=== PATIENT | female | born 1975 | race Caucasian/White ===

== ENCOUNTER → 2019-01-14 | Outpatient (CLI) | payer MEDICARE, MEDICAID ==
--- NOTE | 2019-01-14 15:53 | Diagnostic Imaging Report ---
INDICATION: Right leg pain. TIME OF EXAM: 03:36 p.m. Frontal and lateral views of the right tibia and fibula were obtained. Alignment at the knee and ankle appears to be normal. Tibia and fibula appear intact. No fracture is seen. No stress reaction or stress fracture is seen. IMPRESSION: No acute abnormalities detected. Dictated by: Dictated on workstation # [id number]
== END ==
LOC: RAD FS 15:21
PROVIDERS: ATTEND Family Medicine
DX: M79.604 Pain in right leg (principal)
CPT/HCPCS: 73590

== ENCOUNTER → 2019-02-05 | Outpatient (CLI) | payer MEDICARE, MEDICAID ==
--- NOTE | 2019-02-05 16:42 | Diagnostic Imaging Report ---
PROCEDURE: MRI right lower extremity without contrast. TECHNIQUE: Multiplanar, multisequence non contrast-enhanced MRI of the right lower extremity was accomplished. INDICATION: Pain below the right knee. COMPARISON: Radiographs from 01/14/2019. FINDINGS: No acute fracture or dislocation is seen in the imaged right tibia/fibula. No aggressive osseous lesions are seen. There is moderate edema in the soft tissues along the anteromedial aspect of the mid to distal right tibia. No signal changes in the bone marrow or cortex are seen. There is mild atrophy and increased fluid-sensitive signal at the tibialis anterior muscle, particularly proximally. The remaining musculature in the lower leg demonstrates no focal edema or atrophy. No soft tissue fluid collections are seen. Mild diffuse subcutaneous edema is seen. IMPRESSION: 1. Nonspecific mild edema and atrophy in the right anterior tibialis muscle, may be due to denervation changes. 2. Edema adjacent to the mid to distal tibia can be seen with low-grade medial tibial stress syndrome. No osseous signal changes are seen. Dictated by: Dictated on workstation # [id number]
== END ==
LOC: RAD 15:20
PROVIDERS: ATTEND Family Medicine
DX: R60.0 Localized edema (principal)

== ENCOUNTER → 2020-04-05 | Outpatient (CLI) | payer MEDICARE, MEDICAID ==
--- NOTE | 2020-04-05 11:07 | Diagnostic Imaging Report ---
PROCEDURE: CT head without contrast. TECHNIQUE: Multiple contiguous axial images were obtained through the brain without the use of intravenous contrast. Auto Exposure Controls were utilized during the CT exam to meet ALARA standards for radiation dose reduction. INDICATION: Dizziness. Patient haD shunt placement 13 years ago. No prior studies are available for comparison. Right sided [employer] TECH[employer] shunt courses through the right frontal horn. There is fairly significant ventricular dilatation, suggestive of hydrocephalus. There are no prior studies for comparison. No sulcal effacement is seen. There is no midline shift. No acute intra-axial or extra-axial hemorrhage is detected. Cisterns are patent. Visualized paranasal sinuses are clear. IMPRESSION: Right [employer] TECH[employer]ICIAN shunt. There is fairly significant ventricular dilatation, suggestive of hydrocephalus. Please correlate with prior outside CT brain imaging. No acute intracranial hemorrhage is detected. Dictated by: Dictated on workstation # [id number]
== END ==
LOC: RAD FS 10:23
PROVIDERS: ATTEND Family Medicine
DX: G91.9 Hydrocephalus, unspecified (principal); R42 Dizziness and giddiness; Z98.2 Presence of cerebrospinal fluid drainage device
CPT/HCPCS: 70450

== ENCOUNTER → 2021-09-30 | Outpatient (CLI) | payer MEDICARE, MEDICAID ==
--- NOTE | 2021-09-30 14:44 | Diagnostic Imaging Report ---
PROCEDURE: MR imaging of the brain without contrast. TECHNIQUE: Multiplanar, multisequence MR imaging of the brain was performed without contrast. INDICATION: Dizziness. Headaches. History of cerebral palsy. COMPARISON: CT head on 04/05/2020. FINDINGS: No acute ischemia, mass, or hemorrhage. Ventriculomegaly is visualized with a right parietal approach PRUNER shunt in place. No evidence of transependymal flow of CSF is seen to suggest obstructive hydrocephalus. Extensive volume loss is seen throughout the bilateral cerebral hemispheres. Scattered T2 hyperintense signal is seen in the periventricular and subcortical white matter. No evidence of midline shift. The major intracranial flow voids are intact. The brainstem and posterior fossa demonstrate no acute abnormalities. The paranasal sinuses and mastoid air cells demonstrate normal signal characteristics. The globes and orbits are symmetric and unremarkable. The scalp and calvarium have a normal appearance. IMPRESSION: 1. No acute ischemia, mass, or hemorrhage. 2. Volume loss and ventriculomegaly, consistent with a history of cerebral palsy. A right frontal approach PRUNER shunt is in place. No findings to suggest transependymal flow of CSF. Dictated by: Dictated on workstation # [id number]
== END ==
LOC: RAD 13:15
DX: G80.9 Cerebral palsy, unspecified (principal)
CPT/HCPCS: 70551

== ENCOUNTER → 2023-01-08 | Outpatient (CLI) | payer MEDICARE, MEDICAID ==
--- NOTE | 2023-01-08 12:36 | Diagnostic Imaging Report ---
PROCEDURE: CT left upper extremity without contrast. TECHNIQUE: Multiple contiguous axial images were obtained through the left upper extremity without the use of intravenous contrast. Auto Exposure Controls were utilized during the CT exam to meet ALARA standards for radiation dose reduction. INDICATION: Left wrist pain, contusion. COMPARISON: None. FINDINGS: The evaluation is markedly suboptimal due to increased noise from the adjacent chest. The patient is unable to move the arm away from the body. No acute fracture is identified in the left wrist. There does appear to be significant deformity of the carpus with bone fusion across the radiocarpal joint and the mid carpal joint. There are degenerative changes in the carpometacarpal joints. There is generalized muscular atrophy. No soft tissue gas is seen. IMPRESSION: 1. Suboptimal evaluation due to significant noise from the adjacent torso. 2. 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 No acute fracture is seen. Dictated by: Dictated on workstation # [id number]
== END ==
LOC: RAD FS 09:59
PROVIDERS: ATTEND Orthopaedic Surgery
DX: M24.632 Ankylosis, left wrist (principal); M19.032 Primary osteoarthritis, left wrist
CPT/HCPCS: 73200